=== PATIENT | female | born 1980 | race American Indian/Alaskan Native ===

== ENCOUNTER 2021-01-24 12:30 | Emergency (ER) | payer BC ==
[2021-01-24 15:56] VITALS: BP 157/82
[2021-01-24] MEDS ORDERED: HYDROcodone/ACETAMINOPHEN 5-325 MG TAB PO ONE (15:59)
--- NOTE | 2021-01-24 16:02 | Emergency Department Report ---
ED Lower Extremity HPI - General Chief Complaint: Extremity Injury, Lower Stated Complaint: (R) LEG NUMB/FELL DOWN STEPS Time Seen by Provider: 01/24/21 15:59 Source: patient Mode of arrival: Wheelchair Limitations: No Limitations - History of Present Illness Initial Comments: Patient is a 40-year-old female presents emergency room complaints of a fall that occurred earlier today. She states that she fell approximately 4 steps. She states that she believes she may have been sleepwalking. She states that she fell directly onto her right knee. States that the steps were inside her house and they are carpeted. She denies any dizziness or chest pain prior to the fall. She denies ever injuring this leg in the past. She states that she has pain with ambulation. She states that she feels some tingling in the toes. She is still able to move the toes. No past medical history. No allergies medications. - Related Data Previous Rx's Medication Instructions Recorded Last Taken Type Naproxen [EC-Naprosyn] 500 mg PO BID PRN #14 tablet. 01/24/21 Unknown Rx Allergies Allergy/AdvReac Type Severity Reaction Status Date / Time No Known Allergies Allergy Unverified 01/24/21 15:56 ED Review of Systems ROS: Stated complaint: (R) LEG NUMB/FELL DOWN STEPS Other details as noted in HPI Comment: All other systems reviewed and negative ED Past Medical Hx - Past Medical History Previous Medical History?: Yes Hx Asthma: Yes - Medications Home Medications: Home Medications Medication Instructions Recorded Confirmed Last Taken Type Naproxen [EC-Naprosyn] 500 mg PO BID PRN #14 tablet. 01/24/21 Unknown Rx ED Physical Exam - General Limitations: No Limitations General appearance: alert, in no apparent distress - Head Head exam: Present: atraumatic, normocephalic - Eye Eye exam: Present: normal appearance - ENT ENT exam: Present: mucous membranes moist - Respiratory Respiratory exam: Absent: respiratory distress, accessory muscle use - Extremities Exam Extremities exam: Present: other (ttp to right anterior knee, very small superficial abrasion to the right knee, there is no bleeding, does not appear to break all the way through the skin, no obvious deformity, FROM of the RLE with discomfort upon flexion of the right knee, no obvious joint laxity, neurovascularly intact) - Neurological Exam Neurological exam: Present: alert, oriented X3 - Psychiatric Psychiatric exam: Present: normal affect, normal mood - Skin Skin exam: Present: warm, dry ED Course Vital Signs 01/24/21 15:55 Pulse Rate 68 Respiratory 20 Rate Blood Pressure 157/82 [Right] O2 Sat by Pulse 100 Oximetry ED Lower Extremity MDM - Radiology Data Radiology results: report reviewed Ordering Physician: JULISA SIMS Date of Service: 01/24/21 Procedure(s): XR knee 4+V RT Accession Number(s): [id number] cc: JULISA SIMS Fluoro Time In Minutes: RIGHT KNEE 4 VIEW(S) INDICATION / CLINICAL INFORMATION: fall down steps, right knee pain COMPARISON: None available. FINDINGS: BONES / JOINT(S): No acute fracture or subluxation. Moderate tricompartmental degenerative arthrosis SOFT TISSUES: No significant abnormality. ADDITIONAL FINDINGS: None. Signer Name: Omer Seo MD Signed: 01/24/2021 4:47 PM Workstation Name: [id number] Transcribed By: TL Dictated By: Omer Seo MD Electronically Authenticated By: Omer Seo MD Signed Date/Time: 01/24/211646 DD/ 45 TD/TT: Print - Medical Decision Making Patient is a 40-year-old female presents emergency room complaints of a fall that occurred earlier today. She states that she fell approximately 4 steps. She states that she believes she may have been sleepwalking. She states that she fell directly onto her right knee. States that the steps were inside her house and they are carpeted. She denies any dizziness or chest pain prior to the fall. She denies ever injuring this leg in the past. She states that she has pain with ambulation. She states that she feels some tingling in the toes. She is still able to move the toes. No past medical history. No allergies medications. Vitals are stable. On exam:ttp to right anterior knee, very small superficial abrasion to the right knee, there is no bleeding, does not appear to break all the way through the skin, no obvious deformity, FROM of the RLE with discomfort upon flexion of the right knee, no obvious joint laxity, neurovascularly intact. xr right knee: BONES / JOINT(S): No acute fracture or subluxation. Moderate tricompartmental degenerative arthrosis SOFT TISSUES: No significant abnormality. ADDITIONAL FINDINGS: None. Discussed all results with patient and answer questions. Placed in Behzad wrap given crutches and crutch instructions by me and remained neurovascularly intact. Patient given pain medication as she did not drive and her symptoms improved. Patient given prescription for medication. Advised patient Please take medication as prescribed as needed. May use ice for 15 minutes at a time, rest, compression, elevation of the leg. Do not wear Behzad bandage too tightly and do not wear at night while sleeping. Follow-up with orthopedic doctor. return to emergency room for new or worse symptoms. Critical care attestation.: If time is entered above; I have spent that time in minutes in the direct care of this critically ill patient, excluding procedure time. ED Disposition Clinical Impression: Arthritis of right knee Fall Qualifiers: Encounter type: initial encounter Qualified Code(s): W19.XXXA - Unspecified fall, initial encounter Right knee pain Qualifiers: Chronicity: acute Qualified Code(s): M25.561 - Pain in right knee Disposition: DC-01 TO HOME OR SELFCARE Is pt being admited?: No Does the pt Need Aspirin: No Condition: Stable Instructions: Knee Sprain, Adult Additional Instructions: Please take medication as prescribed as needed. May use ice for 15 minutes at a time, rest, compression, elevation of the leg. Do not wear Behzad bandage too tightly and do not wear at night while sleeping. Follow-up with orthopedic doctor. return to emergency room for new or worse symptoms. Prescriptions: Naproxen [EC-Naprosyn] 500 mg PO BID PRN #14 tablet.dr HUYNH Reason: pain Referrals: KIRTI ARAUZ MD [Staff Physician] - 2-3 Days [facility] [Provider Group] - 2-3 Days Forms: Work/School Release Form(ED) Time of Disposition: 16:57 Print Language: GREENLANDIC
--- NOTE | 2021-01-24 16:51 | XRay Report ---
RIGHT KNEE 4 VIEW(S) INDICATION / CLINICAL INFORMATION: fall down steps, right knee pain COMPARISON: None available. FINDINGS: BONES / JOINT(S): No acute fracture or subluxation. Moderate tricompartmental degenerative arthrosis SOFT TISSUES: No significant abnormality. ADDITIONAL FINDINGS: None. Signer Name: Omer Seo MD Signed: 01/24/2021 4:47 PM Workstation [id number]
== END 2021-01-24 17:10 | disposition home or self-care (01) ==
LOC: ED 12:30
DX: M17.11 Unilateral primary osteoarthritis, right knee (principal); W18.30XA Fall on same level, unspecified, initial encounter; Y93.89 Activity, other specified; Y92.89 Other specified places as the place of occurrence of the external cause; Y99.8 Other external cause status
CPT/HCPCS: 99283